=== PATIENT | male | born 1955 | race Caucasian/White ===

== ENCOUNTER 2017-06-15 16:07 | Inpatient (IN) | payer MEDICAID, OTHER ==
[~2017-06-15] VITALS: Ht 177.8 cm; Wt 74.9 kg
[~2017-06-15 16:07] MED LIST: CLON0.5T PO; ZIPR20CA2 PO
--- NOTE | 2017-06-15 16:17 | NUR ---
PT BIBRA FROM [facility] VN TO ER BED 13. PER REPORT, PT WAS NOTED TO BE HYPOTENSIVE AND TACHYCARDIC. C/O L SIDE RIB AREA PAIN. DENIES TRAUMA. 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 AWAITING MD GRIFFIN.
--- NOTE | 2017-06-15 16:45 | NUR ---
LORETTA CASTILLO AT BEDSIDE FOR EVAL.
[2017-06-15] MEDS ORDERED: ONDANSETRON HCL/PF 4 MG/2 ML VIAL ONE (16:58)
[2017-06-15] MEDS ORDERED: KETOROLAC TROMETHAMINE INJ 30 MG/ML VIAL ONE (16:58)
[2017-06-15] MEDS ORDERED: IV NS 0.9% 1,000 ML BAG IV ONE (17:00)
[2017-06-15] MEDS ORDERED: KETOROLAC TROMETHAMINE INJ 30 MG/ML VIAL IV ONE (17:00)
[2017-06-15] MEDS ORDERED: ONDANSETRON HCL/PF 4 MG/2 ML VIAL IVP ONE (17:00)
--- NOTE | 2017-06-15 17:03 | NUR ---
IV LINE STARTED BLOOD DRAWN AND SENT TO LAB.
[2017-06-15 17:08] LABS: BASOPHILS # (AUTO) 0.2 /CMM (0.0-0.2); BASOPHILS % (AUTO) 1.3 % (0.0-2.0); HEMATOCRIT 36 % (39-51); LYMPHOCYTES # (AUTO) 1.6 /CMM (0.8-4.8); MEAN CORPUSCULAR HEMOGLOBIN 30 PG (26.0-33.0); MEAN CORPUSCULAR HGB CONC 33 g/dl (31.0-36.0); MEAN CORPUSCULAR VOLUME 91 fL (80-96); MONOCYTES # (AUTO) 1.3 /CMM (0.1-1.30); MONOCYTES % (AUTO) 8.4 % (2.0-12.0); NEUTROPHILS % (AUTO) 80.3 % (43.0-81.0); PLATELET COUNT (AUTO) 143 /CMM (150-450); RDW COEFFICIENT OF VARIATION 13.4 (11.5-15.0); RED BLOOD CELL COUNT(AUTO) 3.98 MIL/uL (4.5-6.0); WHITE BLOOD COUNT (AUTO) 16.1 K/uL (4.3-11.0)
[2017-06-15 17:31] LABS: INR 1.12 (0.87-1.13)
[2017-06-15 18:03] LABS: CALCIUM, SERUM 8.9 mg/dL (8.5-10.1); POTASSIUM 4.2 mmol/L (3.5-5.1)
[2017-06-15 18:08] LABS: ALBUMIN 2.9 g/dL (3.4-5.0); BILIRUBIN,DIRECT 0.5 mg/dL (0.0-0.2); BILIRUBIN,TOTAL 1.3 mg/dL (0.2-1.0)
[2017-06-15] MEDS ORDERED: PIPERACILLIN /TAZOBACTAM 3.375 G in IV D5W 50 ML IV ONE (19:30)
[2017-06-15] MEDS ORDERED: ASPIRIN 81 MG TAB.CHEW PO ONE (19:30)
[2017-06-15] MEDS ORDERED: ASPIRIN 325 MG TABLET ONE (20:22)
[2017-06-15 21:04] LABS: APPEARANCE,URINE SL CLOUDY (CLEAR); BILIRUBIN,URINE 1+ (NEGATIVE); BLOOD, URINE 2+ Ery/uL (NEGATIVE); COLOR,URINE BROWN (YELLOW); KETONES,URINE TRACE (NEGATIVE); LEUKOCYTE ESTERASE ,URINE NEGATIVE (NEGATIVE); NITRITE, URINE NEGATIVE (NEGATIVE); PH,URINE 5.5 (5.0-8.0); PROTEIN,URINE TRACE mg/dl (NEGATIVE); UGLUCOSE NEGATIVE (NEGATIVE); UROBILINOGEN,URINE >=8.0 EU/dL (0.2)
--- NOTE | 2017-06-15 21:10 | NUR ---
LORETTA CASTILLO MADE AWARE OF RECENT BP AND PULSE RATE. NO NEW ORDERS AT THIS TIME.
--- NOTE | 2017-06-15 21:25 | NUR ---
REPORT GIVEN TO BALTA. PT AWAITING TRANSFER TO FLOOR.
[2017-06-15 21:27] LABS: BACTERIA,URINE Few /HPF (None Seen); MUCUS,URINE Moderate /LPF (None Seen); SQUAMOUS EPITHELIAL CELL,UR Few /HPF (None Seen); WBC,URINE 0-2 /HPF (0-3)
--- NOTE | 2017-06-15 21:30 | NUR ---
CUSTOMER SERVICE REPRESENTATIVE INITIAL NOTES PT WAS BROUGHT UP FROM ER VIA [facility], ABLE TO AMBULATE FROM [facility] TO BED WITH STEADY GAIT. A/O X4 ABLE TO MAKE NEEDS KNOW. PT IS SHORT OF BREATH WITH SHALLOW BREATHING ON RA SATING WELL. PRODUCTIVE COUGH, SPUTUM WAS COLLECTED FOR CULTURE. DENIES PAIN AT THIS TIME, LUQ IS TENDER TO TOUCH. PT HAS FEVER AT 100.0, TACHY AT 116. COOLING MEASURES INITIATED. PENDING ORDERS. BED IS IN LOW AND LOCKED POSITION, CALL LIGHT WITHIN REACH. WILL CONTINUE TO MONITOR PT.
[2017-06-15 21:40] VITALS: BP 161/81
[2017-06-15] MEDS ORDERED: ZOLPIDEM TARTRATE 5 MG TABLET PO PRN (22:00)
[2017-06-15] MEDS ORDERED: Z GUARD REMEDY 2 OZ OINT TP PRN (22:00)
[2017-06-15] MEDS ORDERED: MAG HYDROX/AL HYDROX/SIMETH 30 ML UDC PO PRN (22:00)
[2017-06-15] MEDS ORDERED: ONDANSETRON HCL/PF 4 MG/2 ML VIAL IVP PRN (22:00)
[2017-06-15] MEDS ORDERED: ALBUTEROL FS 2.5 MG/0.5 ML VIAL.NEB NEB PRN (22:00)
[2017-06-15] MEDS ORDERED: IPRATROPIUM NEB FS 0.5 MG/2.5 ML AMPUL.NEB NEB PRN (22:00)
[2017-06-15] MEDS ORDERED: LEVOFLOXACIN 500 MG /D5W 100ML 100 ML IV ONE (22:04)
[2017-06-15] MEDS: ACETAMINOPHEN 325 MG TABLET PO PRN (22:07)
[2017-06-15] MEDS: ENOXAPARIN SODIUM 40 MG/0.4 ML DISP.SYRIN SQ SCH (22:07)
[2017-06-15] MEDS: LEVOFLOXACIN 500 MG /D5W 100ML 500 MG in PREMIX 1 EA IV SCH (22:12)
[2017-06-15 23:07] VITALS: BP 140/66
[2017-06-16] MEDS ORDERED: KETOROLAC TROMETHAMINE INJ 30 MG/ML VIAL IM PRN (01:30)
[2017-06-16] MEDS ORDERED: methylPREDNISolone SOD SUCC 125 MG/2ML VIAL IV ONE (01:30)
[2017-06-16] MEDS ORDERED: NICOTINE PATCH (14MG) 14 MG PATCH.TD24 TD ONE (01:30)
[2017-06-16] MEDS ORDERED: VANCOMYCIN 1 GM VIAL ONE (02:15)
[2017-06-16] MEDS: VANCOMYCIN 1 GM in IV D5W 250 ML IV SCH ×2 (02:24→13:15)
[2017-06-16 04:00] VITALS: BP 123/76
[2017-06-16] MEDS ORDERED: PIPERACILLIN /TAZOBACTAM 3.375 G in IV D5W 100 ML IV SCH (05:00)
[2017-06-16] MEDS ORDERED: PIPERACILLIN /TAZOBACTAM 3.375 G VIAL IV ONE (05:05)
[2017-06-16] MEDS: methylPREDNISolone SOD SUCC 125 MG/2ML VIAL IV SCH ×3 (05:12→21:21)
--- NOTE | 2017-06-16 06:30 | NUR ---
PLUG STITCHER CLOSING NOTES PT IS IN BED RESTING. NO SIGNS OF SOB OR DISTRESS, BREATHING EVENLY AND UNLABORED ON RA. IV ACCESS IS INTACT AND PATENT. ALL NEEDS WERE ANTICIPATED AND MET. BED IS IN LOW AND LOCKED POSITION, CALL LIGHT WITHIN REACH. WILL ENDORSE TO DAYSHIFT.
[2017-06-16 06:45] LABS: BASOPHILS % (AUTO) 0.1 % (0.0-2.0); HEMATOCRIT 34 % (39-51); HEMOGLOBIN 11.4 g/dL (13.5-17.5); LYMPHOCYTES # (AUTO) 1.6 /CMM (0.8-4.8); LYMPHOCYTES % (AUTO) 9.3 % (20.0-44.0); MEAN CORPUSCULAR HEMOGLOBIN 31 PG (26.0-33.0); MEAN CORPUSCULAR HGB CONC 34 g/dl (31.0-36.0); MEAN CORPUSCULAR VOLUME 93 fL (80-96); MONOCYTES # (AUTO) 1.9 /CMM (0.1-1.30); MONOCYTES % (AUTO) 10.8 % (2.0-12.0); NEUTROPHILS # (AUTO) 13.8 /CMM (1.8-8.9); NEUTROPHILS % (AUTO) 79.8 % (43.0-81.0); PLATELET COUNT (AUTO) 132 /CMM (150-450); RDW COEFFICIENT OF VARIATION 14.1 (11.5-15.0); RED BLOOD CELL COUNT(AUTO) 3.64 MIL/uL (4.5-6.0); WHITE BLOOD COUNT (AUTO) 17.3 K/uL (4.3-11.0)
[2017-06-16 06:49] LABS: CALCIUM, SERUM 8.2 mg/dL (8.5-10.1); CREATININE 0.8 mg/dL (0.6-1.3); PHOSPHORUS 3.4 mg/dL (2.5-4.9); POTASSIUM 4.2 mmol/L (3.5-5.1)
[2017-06-16] MEDS ORDERED: CITA20TA11 PO (07:23)
[2017-06-16] MEDS ORDERED: CLON2TAB4 PO (07:23)
--- NOTE | 2017-06-16 07:30 | NUR ---
HEMP FIBER TAKER OFF/NOTES RECEIVED PT. NPO EXCEPT MEDS AWAITING A CARDIOLOGY CONSULT. PT. TELE READING SINUS TACHYCARDIA AT 97 BPM. PT. IS A&OX3. BREATHING UNLABORED, AND EVENLY ON ROOM AIR. NO S/S OF ACUTE DISTRESS. IV FLUIDS RUNNING TO KEEP VEIN OPEN. BED IS IN LOWEST, AND LOCKED POSITION. 2 SIDE RAILS UP, AND INSTRUCTED PT. TO USE CALL LIGHT FOR ASSISTANCE. ALL NEEDS MET. WILL CONTINUE TO ASSESS AND MONITOR.
[2017-06-16 08:00] VITALS: BP 127/71
[2017-06-16 08:01] VITALS: BP 127/71
[2017-06-16] MEDS: NICOTINE PATCH (14MG) 14 MG PATCH.TD24 TD SCH (09:34)
[2017-06-16] MEDS: HYDROCODONE/APAP 5/325MG 1 EACH TABLET PO PRN ×2 (09:37→19:03)
--- NOTE | 2017-06-16 09:56 | NUR ---
RN NOTES REMOVED PT.'S TELEVISION ENGINEERING TEACHER FROM BEDSIDE TO NURSES STATION. TELEVISION ENGINEERING TEACHER IS LABELED.
[2017-06-16] MEDS ORDERED: FEE PK DOSING 1 MIN EA MC ONE (10:51)
--- NOTE | 2017-06-16 11:52 | NUR ---
WOUND CARE CONSULT: NO NEED FOR WOUND CONSULT PER NURSING STAFF AND [employer]IND [employer]ARM SUPPORT SPECIALIST. CURRENT JEANNE SCORE IS 20 AND PT IS AMBULATORY AND CONTINENT.
--- NOTE | 2017-06-16 11:54 | NUR ---
RN NOTES PT. STATES THAT HE IS ON METHADONE AT THE [facility]. PT. SIGNED A RELEASE OF INFORMATIONS CONSENT TO HAVE METHADONE PRESCRIPTION INFORMATIONS SENT TO [facility] FOR CONTINUATION OF METHADONE TREATMENT. CONSENT FORMS WERE FAXED TO [facility] FOR METHADONE INFORMATION.
[2017-06-16 12:00] VITALS: BP 132/71
[2017-06-16] MEDS ORDERED: VITAMINS A AND D 56.7 GM TUBE TP PRN (12:00)
--- NOTE | 2017-06-16 14:47 | NUR ---
Concrete Curer consult was requested by CALEB Williamson regarding voluntary re-admission to [facility]. The patient was recently hospitalized there recently. mission worker met with the patient bedside. Patient is a 62 year old male who is alert and oriented x4. Pt was lying down with his eyes closed during the consult. Pt was irritable, guarded, and withdrawn. At this time, patient is refusing to go back to the hospital and wants to go back to his home ([address] [place] [address]; [phone]). Pts primary contact is his friend [place] [phone] who will pick him up upon discharge. Patient denies any suicidal or homicidal ideation. Pt denies any auditory or visual hallucinations. Pt denies drinking or doing any drugs. According to the patient, he smokes 2 packs of cigarettes a day. Pt reports that he is unemployed and receives $900 in SSI. mission worker provided pt with Mental Health referrals ([facility] [place], [facility], [facility]). CAMRYN updated TADEO Rossi regarding pts disposition and will remain available for the patients psychosocial needs if he wishes to return to [facility]. At this time, the patient wants to discharge home.
[2017-06-16] MEDS: PIPERACILLIN /TAZOBACTAM 4.5 G in IV NS 0.9% 50 ML IV SCH ×2 (14:48→19:04)
[2017-06-16 16:00] VITALS: BP 147/85
[2017-06-16] MEDS ORDERED: QUET400T PO (17:32)
[2017-06-16] MEDS: ASPIRIN 81 MG TAB.CHEW PO SCH (17:45)
--- NOTE | 2017-06-16 18:58 | NUR ---
CASE AIDE/CLOSING NOTES PT. IS IN BED A&OX4. PT. TELE READING SINUS TACHYCARDIA AT 114 BPM. BREATHING UNLABORED, AND EVENLY ON ROOM AIR. NO S/S OF ACUTE DISTRESS. IV FLUIDS RUNNING TO KEEP VEIN OPEN. BED IS IN LOWEST, AND LOCKED POSITION. 2 SIDE RAILS UP, AND INSTRUCTED PT. TO USE CALL LIGHT FOR ASSISTANCE. ALL NEEDS MET. WILL ENDORSE REPORT TO NURSE.
[2017-06-16] MEDS: NEOMY SULF/BACITRAC ZN/POLY 15 GM TUBE TP SCH (19:03)
[2017-06-16 20:00] VITALS: BP 136/73
--- NOTE | 2017-06-16 20:33 | NUR ---
TELE/RN RECEIVE PATIENT IN BED AWAKE, ALERT, ORIENTED, COMFORTABLE, NO DISTRESS NOTED, CALL LIGHT IN REACH. WILL MONITOR.
[2017-06-16] MEDS: ATORVASTATIN 10 MG TABLET PO SCH (21:24)
[2017-06-16] MEDS: LEVOFLOXACIN 500 MG /D5W 100ML 500 MG in PREMIX 1 EA IV SCH (21:24)
[2017-06-16] MEDS: ENOXAPARIN SODIUM 40 MG/0.4 ML DISP.SYRIN SQ SCH (21:25)
[2017-06-16] MEDS: QUETIAPINE FUMARATE 100 MG TABLET PO SCH (22:24)
--- NOTE | 2017-06-16 23:53 | NUR ---
TELE/RN PATIENT IS SLEEPING AT THIS TIME, AROUSES EASILY, APPEAR COMFORTABLE, NO SIGNS OF DISTRESS NOTED, CALL LIGHT IN REACH. WILL CONTINUE TO MONITOR.
[2017-06-17] VITALS: BP 151/84
[2017-06-17] MEDS: PIPERACILLIN /TAZOBACTAM 4.5 G in IV NS 0.9% 50 ML IV SCH ×4 (00:30→17:50)
[2017-06-17] MEDS: VANCOMYCIN 1 GM in IV D5W 250 ML IV SCH ×3 (01:21→23:07)
[2017-06-17 04:00] VITALS: BP 129/87
[2017-06-17] MEDS: methylPREDNISolone SOD SUCC 125 MG/2ML VIAL IV SCH ×3 (05:37→21:29)
--- NOTE | 2017-06-17 06:35 | NUR ---
TELE/RN PATIENT IS SLEEPING AT THIS TIME, AROUSABLE, APPEAR COMFORTABLE, NO DISTRESS NOTED, CALL LIGHT IN REACH. ALL NEEDS ATTENDED AT THIS TIME. WILL CONTINUE TO MONITOR.
[2017-06-17 06:48] LABS: CALCIUM, SERUM 8.7 mg/dL (8.5-10.1); CREATININE 0.7 mg/dL (0.6-1.3); POTASSIUM 3.5 mmol/L (3.5-5.1)
--- NOTE | 2017-06-17 07:50 | NUR ---
SPECIAL PROCEDURE TECHNOLOGIST/OPENING NOTES RECEIVED PT. IN BED A&OX4. PT. IS ON TELE MONITOR. BREATHING IS UNLABORED, AND EVEN ON ROOM AIR. NO S/S OF ACUTE DISTRESS. IV FLUIDS RUNNING TO KEEP VEIN OPEN. BED IS IN LOWEST, AND LOCKED POSITION. 2 SIDE RAILS UP, AND INSTRUCTED PT. TO USE CALL LIGHT FOR ASSISTANCE. ALL NEEDS MET. WILL CONTINUE TO ASSESS AND MONITOR. FAXED 2X [facility] FOR METHADONE DOSAGE INFORMATION.
[2017-06-17 08:00] VITALS: BP 160/83
[2017-06-17] MEDS ORDERED: Medication Not On Formulary EA (Quetiapine Fumarate (Seroquel) 400 MG) PO SCH (09:00)
[2017-06-17] MEDS: ASPIRIN 81 MG TAB.CHEW PO SCH (09:11)
[2017-06-17] MEDS: NICOTINE PATCH (14MG) 14 MG PATCH.TD24 TD SCH (09:12)
[2017-06-17] MEDS: ACETAMINOPHEN 325 MG TABLET PO PRN (09:12)
[2017-06-17] MEDS: NEOMY SULF/BACITRAC ZN/POLY 15 GM TUBE TP SCH (09:15)
[2017-06-17] MEDS ORDERED: clonazePAM 2 MG TABLET PO PRN (09:30)
[2017-06-17 10:32] LABS: HEMATOCRIT 34 % (39-51); HEMOGLOBIN 11.2 g/dL (13.5-17.5); LYMPHOCYTES # (AUTO) 0.7 /CMM (0.8-4.8); LYMPHOCYTES % (AUTO) 7.7 % (20.0-44.0); MEAN CORPUSCULAR HEMOGLOBIN 31 PG (26.0-33.0); MEAN CORPUSCULAR HGB CONC 34 g/dl (31.0-36.0); MEAN CORPUSCULAR VOLUME 92 fL (80-96); MONOCYTES # (AUTO) 0.3 /CMM (0.1-1.30); NEUTROPHILS # (AUTO) 7.5 /CMM (1.8-8.9); NEUTROPHILS % (AUTO) 88.3 % (43.0-81.0); PLATELET COUNT (AUTO) 170 /CMM (150-450); RDW COEFFICIENT OF VARIATION 13.9 (11.5-15.0); RED BLOOD CELL COUNT(AUTO) 3.66 MIL/uL (4.5-6.0); WHITE BLOOD COUNT (AUTO) 8.5 K/uL (4.3-11.0)
[2017-06-17] MEDS: CITALOPRAM HYDROBROMIDE 20 MG TABLET PO SCH (11:37)
[2017-06-17 12:00] VITALS: BP 144/80
[2017-06-17] MEDS: HYDROCODONE/APAP 5/325MG 1 EACH TABLET PO PRN (13:25)
[2017-06-17] MEDS: CARVEDILOL 6.25 MG TABLET PO SCH ×2 (13:36→21:28)
[2017-06-17 16:00] VITALS: BP 152/56
[2017-06-17] MEDS ORDERED: METHADONE HCL 10 MG TABLET PO ONE (17:00)
[2017-06-17] MEDS: LACTOBACILLUS RHAMNOSUS GG 1 EACH CAP.SPRINK PO SCH (17:48)
--- NOTE | 2017-06-17 19:30 | NUR ---
CONSULTING SOLUTION MANAGER/CLOSING NOTES PT. IN BED A&OX4. PT. IS ON TELE MONITOR. BREATHING IS UNLABORED, AND EVEN ON ROOM AIR. NO S/S OF ACUTE DISTRESS. IV FLUIDS RUNNING TO KEEP VEIN OPEN. BED IS IN LOWEST, AND LOCKED POSITION. 2 SIDE RAILS UP, AND INSTRUCTED PT. TO USE CALL LIGHT FOR ASSISTANCE. ALL NEEDS MET. WILL CONTINUE TO ASSESS AND MONITOR. WILL ENDORSE REPORT TO NURSE.
[2017-06-17 20:00] VITALS: BP 165/86
[2017-06-17] MEDS ORDERED: LEVOFLOXACIN (500MG) 500 MG TABLET PO SCH (20:00)
[2017-06-17] MEDS: QUETIAPINE FUMARATE 100 MG TABLET PO SCH (21:29)
[2017-06-17] MEDS: ATORVASTATIN 10 MG TABLET PO SCH (21:29)
[2017-06-17] MEDS: ENOXAPARIN SODIUM 40 MG/0.4 ML DISP.SYRIN SQ SCH (21:31)
[2017-06-18] MEDS: PIPERACILLIN /TAZOBACTAM 4.5 G in IV NS 0.9% 50 ML IV SCH ×3 (00:10→11:23)
--- NOTE | 2017-06-18 04:55 | NUR ---
MS/RN PATIENT TOOK ONLY 200 MG (2 TABLETS) OF SEROQUEL AT 21:30, RETURNED 2 TABLETS.
[2017-06-18] MEDS: methylPREDNISolone SOD SUCC 125 MG/2ML VIAL IV SCH (05:30)
--- NOTE | 2017-06-18 06:15 | NUR ---
MS/RN PATIENT IS AWAKE, WATCHING TV, COMFORTABLE, NO DISTRESS NOTED, ON AND OFF SLEEP LAST NIGHT, ALL NEEDS ATTENDED AT THIS TIME, WILL CONTINUE TO MONITOR.
[2017-06-18] MEDS: VANCOMYCIN 1 GM in IV D5W 250 ML IV SCH (06:46)
[2017-06-18 07:07] LABS: CALCIUM, SERUM 8.3 mg/dL (8.5-10.1); CREATININE 0.7 mg/dL (0.6-1.3); POTASSIUM 4.4 mmol/L (3.5-5.1)
--- NOTE | 2017-06-18 07:30 | NUR ---
MS RN NOTES PATIENT RECEIVED RESTING INSIDE ROOM, AWAKE, ALERT AND ORIENTED X 4. ABLE TO MAKE NEEDS KNOWN AND FOLLOW SIMPLE INSTRUCTIONS. BREATHING EVEN AND UNLABORED. NO SOB OR ACUTE DISTRESS NOTED AT THIS TIME. IV SITE ON LEFT FOREARM, NO BLEEDING OR SWELLING NOTED AT THIS TIME. PATIENT CALM AND RELAXED. DENIES ANY PAIN OR DISCOMFORT AT THIS TIME. WILL CONTINUE TO MONITOR. BED LOCKED AND IN LOW POSITION, BILATERAL UPPER SIDE RAILS UP AND LOCKED. CALL LIGHT WITHIN EASY REACH
[2017-06-18 08:00] VITALS: BP 164/76
[2017-06-18 08:16] VITALS: BP 164/76
[2017-06-18] MEDS: CARVEDILOL 6.25 MG TABLET PO SCH (08:16)
[2017-06-18] MEDS: ASPIRIN 81 MG TAB.CHEW PO SCH (08:16)
[2017-06-18] MEDS: LACTOBACILLUS RHAMNOSUS GG 1 EACH CAP.SPRINK PO SCH (08:16)
[2017-06-18] MEDS: NICOTINE PATCH (14MG) 14 MG PATCH.TD24 TD SCH (08:16)
[2017-06-18] MEDS: CITALOPRAM HYDROBROMIDE 20 MG TABLET PO SCH (08:16)
[2017-06-18] MEDS: NEOMY SULF/BACITRAC ZN/POLY 15 GM TUBE TP SCH (08:17)
--- NOTE | 2017-06-18 08:50 | NUR ---
MS RN NOTES PATIENT VERBALIZED FEELING OF ANXIOUSNESS. NO CHANGES IN LOC NOTED. NON-PHARMACOLOGICAL INTERVENTIONS PROVIDED, DIMMED ROOM LIGHTS, PROVIDED WITH CALM ENVIRONMENT. PATIENT SILL VERBALIZED FEELING OF ANXIOUSNESS. GIVEN KLONOPIN ORDERED PRN. NO INCREASED SEDATION NOTED. PATIENT BREATHING EVEN AND UNLABORED. WILL CONTINUE TO MONITOR
[2017-06-18] MEDS ORDERED: METHADONE HCL 10 MG TABLET PO SCH (09:00)
[2017-06-18] MEDS ORDERED: clonazePAM 1 MG TABLET PO PRN (09:00)
--- NOTE | 2017-06-18 10:15 | NUR ---
MS RN NOTES PATIENT SHOWERED THIS AM. NO EPISODE OF FALL OR INJURY. NO CHANGES IN LOC NOTED. SEEN BY DR. BARKER. WILL CONTINUE TO MONITOR
--- NOTE | 2017-06-18 12:33 | NUR ---
MS RN NOTES PATIENT LEFT HOSPITAL AMA. REFUSED TO LISTEN TO REASON AND WAIT FOR MD VISIT. VERBALIZED HE IS GOING TO LEAVE NO MATTER WHAT. IV SITE REMOVED AND PRESSURE DRESSING PLACED. PATIENT REFUSED TO SIGN AMA FORM. WAS OFFERED WITH DISCHARGE PAPERWORKS AND EDUCATION TEACHING BUT PATIENT REFUSED TO RECEIVE. VERIFIED IF ALL BELONGINGS ARE COMPLETE AND PATIENT SAID YES. PATIENT LEFT UNIT FLOOR AT 1220. ACCOMPANIED OUTSIDE THE HOSPITAL PREMISES. PATIENT SEEN RIDING BUS ACROSS THE STREET AT 1255.
== END 2017-06-18 12:30 | disposition left against medical advice (07) | DRG 720 ==
LOC: ER 16:09 → TELE 20:53 → MED 06-17 20:27
PROVIDERS: ADMIT Nurse Practitioner Acute Care; ATTEND Nurse Practitioner Acute Care
PROC: 0HBRXZZ Excision of Toe Nail, External Approach (ICD-10-PCS; principal; 2017-06-16)
DX: A41.9 Sepsis, unspecified organism (principal); I21.A1 Myocardial infarction type 2; J69.0 Pneumonitis due to inhalation of food and vomit; J15.6 Pneumonia due to other Gram-negative bacteria; D63.8 Anemia in other chronic diseases classified elsewhere; I10 Essential (primary) hypertension; S60.512A Abrasion of left hand, initial encounter; E86.0 Dehydration; M94.0 Chondrocostal junction syndrome [Tietze]; L60.3 Nail dystrophy; F17.210 Nicotine dependence, cigarettes, uncomplicated; L85.3 Xerosis cutis; E80.6 Other disorders of bilirubin metabolism; S60.410A Abrasion of right index finger, initial encounter; X58.XXXA Exposure to other specified factors, initial encounter; Y93.9 Activity, unspecified; Y92.009 Unspecified place in unspecified non-institutional (private) residence as the place of occurrence of the external cause; F20.9 Schizophrenia, unspecified; R07.81 Pleurodynia
CPT/HCPCS: 36415; 71045-TC; 80048-TC; 80061-TC; 80076-TC; 80202-TC; 80305; 81000-TC; 83690-TC; 83735-TC; 83880; 84100-TC; 84484-TC; 85025-TC; 85730-TC; 87040-TC; 87070-TC; 87081-TC; 87086-TC; 87186-TC; 93307-TC; A4216; A4606; J1650; J1885; J1956; J2405; J2543; J2930; J3370; J7030; J7050; J7060; Z7610